=== PATIENT | female | born 2000 | race Caucasian/White ===

== ENCOUNTER 2023-10-16 18:45 | Emergency (ER) | payer OTHER, SELFPAY ==
--- NOTE | ~2023-10-16 | XR_ITS ---
EXAMINATION: XR HAND/WRIST, LEFT CLINICAL INFORMATION: Blunt injury. COMPARISON: None TECHNIQUE: PA, lateral, and oblique views of the left hand and wrist. FINDINGS: There is a nondisplaced distal radial fracture without angulation. There is a nondisplaced fracture of ulnar styloid process as well. Mild dorsal wrist soft tissue swelling is seen. The carpal bones, metacarpals and partially visualized phalanges are unremarkable. XR/XR hand wrist LT IMPRESSION: Nondisplaced distal radial and ulnar styloid process fractures. Moderate dorsal wrist soft tissue swelling.
[2023-10-16 19:19] VITALS: BP 124/87; PULSE 114; O2SAT 97
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
[2023-10-16] MEDS: Ibuprofen 600 MG TABLET PO (19:23)
[2023-10-16 19:59] VITALS: BP 120/77; PULSE 115; RESP 20; TEMP 37.2; O2SAT 95; BMI 22.3
[2023-10-16 22:29] VITALS: BP 120/77; PULSE 115; RESP 20; TEMP 37.2; O2SAT 95
== END 2023-10-16 22:29 | disposition home or self-care (01) ==
PROVIDERS: Emergency Provider Internal Medicine
DX: S52.515A Nondisplaced fracture of left radial styloid process, initial encounter for closed fracture (principal); S52.615A Nondisplaced fracture of left ulna styloid process, initial encounter for closed fracture; Y04.8XXA Assault by other bodily force, initial encounter; Y93.9 Activity, unspecified; Y92.9 Unspecified place or not applicable; Y99.9 Unspecified external cause status
CPT/HCPCS: 29125; 73110; 73130; 99283

== ENCOUNTER 2023-10-23 08:12 | Outpatient (REF) | payer OTHER, SELFPAY ==
--- NOTE | ~2023-10-23 | XR_ITS ---
EXAMINATION: XR WRIST, LEFT CLINICAL INFORMATION: Left wrist pain. COMPARISON: Left hand and wrist radiographs dated 10/16/2023. TECHNIQUE: PA, oblique, lateral, and scaphoid views of the left wrist. FINDINGS: Minimally displaced ulnar styloid fracture in unchanged anatomic alignment with the fracture gap measuring up to 0.1 cm. Additional, minimally displaced fracture through the ulnar aspect of the distal radial metaphysis in unchanged anatomic alignment. No definite extension of the radial fracture to the articular surface. Normal carpal alignment. No joint space narrowing and marginal osteophytes. No osseous erosion. No abnormal soft tissue calcification. XR/XR wrist LT w scaphoid IMPRESSION: Distal radius and ulnar fractures in unchanged anatomic alignment. No definite extension to the radial articular surface. Electronically signed by: Tom Quach MD 10/27/2023 09:10 AM EDT
== END 2023-10-23 08:13 | disposition home or self-care (01) ==
LOC: HO.XRAY 08:12
DX: S52.502A Unspecified fracture of the lower end of left radius, initial encounter for closed fracture (principal); S52.612A Displaced fracture of left ulna styloid process, initial encounter for closed fracture
CPT/HCPCS: 73110; 99202

== ENCOUNTER 2023-10-31 08:17 | Outpatient (REF) | payer OTHER, SELFPAY | END 2023-10-31 08:18 | disposition home or self-care (01) | LOC: HO.HOSX 08:17 | DX: Z13.89 Encounter for screening for other disorder (principal) ==

== ENCOUNTER 2023-11-16 11:05 | Outpatient (AMB) | payer OTHER, SELFPAY ==
--- NOTE | 2023-11-16 11:07 | MHC.OFFVIS ---
Intake Visit Reasons: OV- left radial fx Intake Note: Anabel is a 23 year old right hand dominant female who presents to the office today for a follow up visit of her left radial fx, s/p fall DOI: 10/16/2023. Pt states she doesn't have as much pain as before. She states she will get moments where she has pain. Allergies No Known Allergies Allergy (Verified 11/16/23 11:07) HPI HPI OV- left radial fx: Details: Patient is a 23-year-old female who presents for repeat evaluation of left distal radius fracture, date of injury 10/16/23. Today, the patient reports that she is feeling much better, and then she only experiences minimal twinges of pain occasionally. Patient denies any numbness or tingling in the left hand. No other acute complaints or concerns at this time. Review of Systems Const All systems reviewed & are unremarkable except as noted in HPI and below Physical Exam Extrem Other: Patient is alert, oriented, and in no acute distress. Neuro: Sensation is normal the tips of all other digits of the left hand at this time. Vascular: Cap refill brisk Pain: Patient reports very mild dull ?sensation? but no pain to palpation of the left radial styloid No tenderness to palpation of the ulnar styloid No tenderness to palpation of the anatomical snuffbox or the scaphoid tubercle No tenderness to palpation of the radial head ROM: Patient is able to make a closed fist and extend all digits of the left hand fully Skin: No lacerations or abrasions. General: No noted edema, erythema, evidence of infection Psych: Appears grossly normal Affect normal Attitude cooperative Results Reviewed Results Reviewed: X-rays obtained in the office today and independently reviewed by me, Sukhdeep Toscano PA-C, demonstrate nondisplaced fracture of the left distal radius with evidence of interval bony healing, and displaced fracture of the distal ulnar styloid. Assessment & Plan Assessment & Plan (1) Displaced fracture of left ulna styloid process, initial encounter for closed fracture: Code(s): S52.612A - Displaced fracture of left ulna styloid process, initial encounter for closed fracture Category: Medical (2) Nondisplaced fracture of distal end of left radius: Code(s): S52.502A - Unspecified fracture of the lower end of left radius, initial encounter for closed fracture Category: Medical Plan 1. Left distal radius fracture, non displaced Date of injury 10/16/2023 Patient appears to be recovering well from her injury Patient is educated about the typical recovery course At this time, the patient was removed from a cast and is placed in a Velcro wrist splint to be worn with daytime activities for 4 weeks Patient is educated that she does not have to wear this splint while at rest, while bathing, or while sleeping Patient is educated that she should work on gentle range of motion about the left wrist while at rest and out of the splint Patient is amenable to this plan Patient will follow-up in 4 weeks with repeat x-rays, sooner with any acute concerns Orders: Orders XR wrist LT w scaphoid Today M25.532 - Pain in left wrist Coding Level of Care Code Global (26049) Diagnoses Displaced fracture of left ulna styloid process, initial encounter for closed fracture S52.612A Nondisplaced fracture of distal end of left radius S52.502A
== END 2023-11-16 12:21 | disposition home or self-care (01) ==
DX: S52.612A Displaced fracture of left ulna styloid process, initial encounter for closed fracture (principal); S52.502A Unspecified fracture of the lower end of left radius, initial encounter for closed fracture
CPT/HCPCS: 99024

== ENCOUNTER 2023-11-16 11:14 | Outpatient (REF) | payer OTHER, SELFPAY ==
--- NOTE | ~2023-11-16 | XR_ITS ---
EXAMINATION: XR WRIST, LEFT CLINICAL INFORMATION: M25.532 - Pain in left wrist ; follow-up fracture COMPARISON: 10/23/2023. 10/16/2023. TECHNIQUE: PA, lateral, oblique, and scaphoid views of the left wrist. FINDINGS: Healing mildly comminuted nondisplaced and nonangulated distal radial fracture, with sclerosis and blunting of the fracture margins. No definite extension to the articular surface. Similarly, ulnar styloid fracture demonstrates some early evidence of subtle healing. Overall there is anatomical alignment preserved. Carpal bones remain anatomically aligned and intact. No widening of the scapholunate interval. Soft tissues currently appear normal. XR/XR wrist LT w scaphoid IMPRESSION: 1. No acute bony abnormalities. 2. Continued healing distal radial comminuted fracture, and continued healing of ulnar styloid fracture. Anatomical alignment is maintained. Electronically signed by: Poli Klein MD 01/27/2024 07:23 PM [facility]
== END 2023-11-16 11:15 | disposition home or self-care (01) ==
LOC: HO.HOSX 11:14
DX: M25.532 Pain in left wrist (principal); S52.612A Displaced fracture of left ulna styloid process, initial encounter for closed fracture; S52.502A Unspecified fracture of the lower end of left radius, initial encounter for closed fracture
CPT/HCPCS: 73110; 99212

== ENCOUNTER → 2023-11-16 11:16 | Outpatient (BNV) | payer OTHER, SELFPAY | PROVIDERS: Visit Provider Radiology Diagnostic Radiology | DX: S52.502D Unspecified fracture of the lower end of left radius, subsequent encounter for closed fracture with routine healing (principal) | CPT/HCPCS: 73110 ==

== ENCOUNTER 2023-12-15 09:24 | Outpatient (REF) | payer OTHER, SELFPAY ==
--- NOTE | ~2023-12-15 | XR_ITS ---
EXAMINATION: XR WRIST, LEFT CLINICAL INFORMATION: M25.532 - Pain in left wrist COMPARISON: 11/16/2023, 10/23/2023, 10/16/2023. TECHNIQUE: PA, lateral, oblique, and scaphoid views of the left wrist. FINDINGS: Continued interval healing mildly comminuted nondisplaced and nonangulated distal radial fracture, with sclerosis and blunting of the fracture margins. No definite extension to the articular surface. Similarly, ulnar styloid fracture demonstrates some further evidence of healing with bridging callus. Overall there is anatomical alignment preserved. Carpal bones remain anatomically aligned and intact. No widening of the scapholunate interval. Soft tissues currently appear normal. XR/XR wrist LT w scaphoid IMPRESSION: 1. No acute bony abnormalities. 2. Continued healing distal radial comminuted fracture, and continued healing of ulnar styloid fracture. Anatomical alignment is maintained. Electronically signed by: Poli Klein MD 01/27/2024 07:25 PM [facility]
== END 2023-12-15 09:25 | disposition home or self-care (01) ==
LOC: HO.HOSX 09:24
DX: M25.532 Pain in left wrist (principal); S52.612A Displaced fracture of left ulna styloid process, initial encounter for closed fracture; S52.502A Unspecified fracture of the lower end of left radius, initial encounter for closed fracture
CPT/HCPCS: 25600; 73110; 99212

== ENCOUNTER 2023-12-15 11:28 | Outpatient (AMB) | payer OTHER, SELFPAY ==
[2023-12-15 11:35] VITALS: BMI 22.3
--- NOTE | 2023-12-15 11:35 | MHC.OFFVIS ---
Vital Signs 12/15/23 11:35 Height 5 ft 4 in Weight 130 lb BMI 22.3 Intake Visit Reasons: OV- Left radial fx follow up, DOI 10/16/23 Intake Note: Anabel is a 23 year old right hand dominant female who presents to the office today for a follow up visit of her left radial fx, s/p fall DOI: 10/16/2023. Velcro wrist splint to be worn with daytime activities for 4 weeks & work on gentle ROM. Patient states that she wears the brace everyday for support, she has minimal pain. Allergies No Known Allergies Allergy (Verified 12/15/23 11:39) HPI HPI OV- Left radial fx follow up, DOI 10/16/23: Details: Patient is a 23-year-old female who presents for 4 week follow-up of the left distal radius fracture, date of injury 09/1923. Today, the patient reports that she is feeling much better, and is experiencing no pain at baseline. Patient reports that she has been wearing the Velcro wrist splint with all daytime activities, but has been working on range of motion while at rest. Patient denies any numbness or tingling in the left hand. No other acute complaints or concerns at this time. Review of Systems Const All systems reviewed & are unremarkable except as noted in HPI and below Physical Exam Vital Signs: BMI result Body Mass Index 22.3 Extrem Other: Patient is alert, oriented, and in no acute distress. Neuro: Sensation is normal the tips of all other digits of the left hand at this time. Vascular: Cap refill brisk Pain: No tenderness to palpation of the left radial styloid No tenderness to palpation of the ulnar styloid No tenderness to palpation of the anatomical snuffbox or the scaphoid tubercle No tenderness to palpation of the radial head ROM: Patient is able to make a closed fist and extend all digits of the left hand fully Range of motion of the left wrist full and intact Skin: No lacerations or abrasions. General: No noted edema, erythema, evidence of infection Psych: Appears grossly normal Affect normal Attitude cooperative Results Reviewed Results Reviewed: X-rays obtained in the office today and independently reviewed by me, Sukhdeep Toscano PA-C, demonstrate very well approximated fracture of the left distal radius with evidence of interval bony healing. There is also a minimally displaced fracture of the left ulnar styloid with improved alignment from last visit and interval bony healing. Assessment & Plan Assessment & Plan (1) Displaced fracture of left ulna styloid process, initial encounter for closed fracture: Code(s): S52.612A - Displaced fracture of left ulna styloid process, initial encounter for closed fracture Category: Medical (2) Nondisplaced fracture of distal end of left radius: Code(s): S52.502A - Unspecified fracture of the lower end of left radius, initial encounter for closed fracture Category: Medical Plan 1. Left distal radius fracture, nondisplaced 2. Left ulnar styloid fracture, minimally displaced Date of injury 09/1923 Patient is recovering well from her injury Patient is educated about the typical recovery course At this time, patient is informed that she will only require the Velcro wrist splint in high-energy or high-risk situations for the next 2-3 weeks to allow for improved healing of the fracture and to prevent any re-injury Patient is also informed that she can move her weight limit up to approximately 5 lb in the left hand and wrist, and in 2-3 weeks can proceed to normal activity as tolerated Patient understands this and is amenable to this plan Patient will follow-up as needed with any acute concerns Orders: Orders XR wrist LT w scaphoid Today M25.532 - Pain in left wrist Coding Level of Care Code Global (62956) Diagnoses Displaced fracture of left ulna styloid process, initial encounter for closed fracture S52.612A Nondisplaced fracture of distal end of left radius S52.502A
== END 2023-12-15 11:52 | disposition home or self-care (01) ==
DX: S52.612A Displaced fracture of left ulna styloid process, initial encounter for closed fracture (principal); S52.502A Unspecified fracture of the lower end of left radius, initial encounter for closed fracture
CPT/HCPCS: 25600; 99024

== ENCOUNTER → 2023-12-15 11:30 | Outpatient (BNV) | payer OTHER, SELFPAY | PROVIDERS: Visit Provider Radiology Diagnostic Radiology | DX: S52.502D Unspecified fracture of the lower end of left radius, subsequent encounter for closed fracture with routine healing (principal); S52.615D Nondisplaced fracture of left ulna styloid process, subsequent encounter for closed fracture with routine healing | CPT/HCPCS: 73110 ==

== ENCOUNTER 2024-08-31 10:58 | Emergency (ER) | payer OTHER, SELFPAY ==
--- NOTE | ~2024-08-31 | US_ITS ---
CLINICAL HISTORY: vomiting, HCG 44,000, ABD PAIN US OB 1ST TRIMESTER TRANSABDOMINAL Comparison: None provided Findings: Single intrauterine . CRL: 11.5 mm. EGA: 7 weeks, 3 days. YAZMIN: April 16, 2025. Previously established gestational age: N/A. Normal yolk sac . Cardiac activity: 139 bpm. No subchorionic bleed. Right ovary 3.3 x 1.9 x 1.7 cm. No dominant cyst. Left ovary 2.8 x 1.9 x 2.1 cm. No dominant cysts. No free fluid. IMPRESSION: Single intrauterine estimated 7 weeks, 3 days gestational age by today's ultrasound criteria. This document has been electronically signed by: Bisi Carranza DO on 08/31/2024 13:45:11
--- NOTE | 2024-08-31 10:58 | ED.GENADULT ---
HPI - General Adult General Chief complaint: Nausea/Vomiting/Diarrhea Stated complaint: N/V, LT SIDE ABD PAIN,LEG CRAMPS,ETOH T-1 PER EMS Source: patient, EMS, RN notes reviewed and old records reviewed Mode of arrival: EMS Limitations: no limitations History of Present Illness ED Provider: Parag HPI narrative: Patient is a 24-year-old female with no reported past medical history presenting to the emergency department with complaint of nausea and vomiting since this morning after drinking alcohol yesterday. States she did have 2 episodes of loose stool prior to coming to the emergency department. She was given IV fluids and Zofran by EMS which she states significantly improved her symptoms and is requesting something to drink. Denies abdominal pain. Does report irregular menstrual periods, reports last normal period was 06/30-07/10. On OCP, unsure of name. complaint: nausea and vomiting Onset (ago): hour(s) Related Data Previous Rx's ?Medication ?Instructions ?Recorded cephalexin 500 mg capsule 500 mg PO QID #28 caps 08/31/24 ondansetron 4 mg disintegrating 4 mg PO Q8H PRN nausea and 08/31/24 tablet vomiting #10 tabs vits no.126-ferrous fum 1 tab PO DAILY #90 tabs 08/31/24 28 mg iron-folic acid 800 mcg tablet (Classic ) Allergies Allergy/AdvReac Type Severity Reaction Status Date / Time No Known Allergies Allergy Verified 08/31/24 11:11 Review of Systems Review of Systems: As per HPI Yes all other systems are reviewed and are negative Constitutional: Constitutional: Reports as per HPI [facility] Social History Social History Alcohol intake: current Alcohol intake frequency: holidays/special occasions only Alcohol type: hard liquor Smoked in Last 30 Days: Yes Use of substances other than those prescribed or required for medical reasons: Yes Substance Use Type: Marijuana Advance Directives: No Advance Directives Information Provided: No Physical Exam ED Vital Signs: Vital Signs - 24 hr 08/31/24 11:07 08/31/24 11:14 Temperature 98.7 F 98.7 F Pulse Rate 73 62 Respiratory Rate 16 18 Blood Pressure 109/63 109/63 Pulse Oximetry 98 100 Oxygen Delivery Method Room Air Room Air BMI result Body Mass Index 21.0 Vital signs have been reviewed and appear to be correct. Blood pressure normal. Heart rate normal. Respiratory rate normal. Temperature normal. Oxygen saturation normal. Const General: cooperative, healthy appearing and no acute distress Orientation/consciousness: oriented to person, oriented to place, oriented to time and patient oriented x3 Limitations: no limitations HENMT Head: Yes normocephalic and Yes atraumatic Ears: external ears normal General nose exam: Normal external nose present Face and sinus: Yes face symmetric Mouth: oropharynx normal and moist mucous membranes Throat: Yes uvula midline Eyes Pupils: Equal, round and reactive pupils present Neck Neck: Yes normal visual inspection and Yes supple Resp Effort & Inspection: normal respiratory effort and able to speak in complete sentences Auscultation: clear to auscultation bilaterally Cardio Rate: regular rate Rhythm: regular rhythm Heart sounds: S1 normal heart sound present and S2 normal heart sound present GI Palpation (GI): Soft to palpation and nontender Auscultation: normoactive bowel sounds General: Yes no CVA tenderness Back/Spine/Pelvis Back: no CVA tenderness Skin General skin exam: elasticity normal and turgor normal Neuro General: oriented to person, oriented to place, oriented to time, patient oriented x3, moves all extremities, no focal motor deficits and CN's II-XI intact bilaterally Cranial nerves: Yes Equal, round and reactive pupils present Cognition (Neuro): normal cognition Extrem General: Yes full ROM, Yes no pedal edema and Yes no calf tenderness Psych Mental Status: mental status grossly normal Affect: normal affect Thought process: Normal thought process present Medications Administered Discontinued Medications Generic Name Dose Route Start Last Admin Trade Name Freq PRN Reason Stop Dose Admin Cephalexin HCl 500 mg 08/31/24 12:56 08/31/24 13:00 Cephalexin 500 Mg Capsule PO 08/31/24 12:57 500 mg ONCE ONE Administration Sodium Chloride 1,000 mls @ 999 mls/hr 08/31/24 11:15 08/31/24 12:51 Ns IV 08/31/24 12:15 Infused .Q1H1M PREETHI Infusion Magnesium Sulfate 2 gm in 50 mls @ 25 mls/hr 08/31/24 12:18 08/31/24 14:14 Magnesium Sulfate/H2o IV 08/31/24 14:17 Infused ONCE ONE Infusion Ondansetron HCl 4 mg 08/31/24 11:01 08/31/24 12:51 Ondansetron Hcl 4 Mg/2 Ml Vial IVPUSH 08/31/24 11:02 Not Given ONCE ONE Medical Decision Making Medical Decision Making [facility] Narrative: Patient is a 24-year-old female with no reported past medical history presenting to the emergency department with complaint of nausea and vomiting since this morning after drinking alcohol yesterday. On exam patient is awake, A+Ox3, VS WNL, afebrile, normal neurological exam without focal deficits, physical exam findings as above. Given reported symptoms and physical exam findings, initial differential includes but is not limited to gastritis, gastroenteritis, electrolyte abnormality, dehydration, possible . Plan to check labs, PO trial. Labs notable for hypomagnesemia, [place] [address]. Pelvic u/s ordered. She denies any recent vaginal bleeding or other abnormal vaginal discharge. UA notable for 2+ leukocytes, positive nitrites, 4+ bacteria. Will treat with cephalexin. U/S notable for single IUP with estimated gestational age of 7wks, 3 days. My interpretation is in agreement with the radiologist's interpretation. Patient has been able to tolerate both food and fluids in the ED without vomiting. Feel she is stable for discharge, will start on vitamins and provide information for OB follow up. Will send prescription for zofran for nausea. Return precautions discussed. Patient verbalized understanding of and agreement with plan. Differential Diagnosis Differential Diagnoses: The differential diagnosis associated with the presentation includes As per [facility] Admission/Observation Consideration of admission/observation: Escalation of care including admission/observation considered Patient would have been admitted to the hospital had their work up had any findings where hospital admission was appropriate and their clinical presentation warranted hospital admission. Lab Data [facility] Lab Attestation statement: I reviewed the patient's lab results. as per [facility] 08/31/24 11:25 08/31/24 11:25 Labs: Lab Results 08/31/24 08/31/24 Range/Units 11:25 12:07 WBC 12.1 H (4.8-10.8) X10*3/uL RBC 3.73 L (4.20-5.50) X10*6/uL Hgb 11.8 L (12.0-16.0) g/dl Hct 33.2 L (37.0-47.0) % MCV 89.0 (80.0-98.0) fL MCH 31.6 (27.0-33.0) pg MCHC 35.5 H (31.0-35.0) g/dl RDW 12.9 (11.0-16.0) % Plt Count 376 (160-400) X10*3/uL MPV 9.5 (9.4-12.3) fL Immature Gran % (Auto) 0.2 (0.0-0.4) % Neut % (Auto) 90.4 H (45-73) % Lymph % (Auto) 6.5 L (20-40) % [place] % (Auto) 2.7 (2-11) % Eos % (Auto) 0.0 (0-4) % Baso % (Auto) 0.2 (0-2) % Lymph # (Auto) 0.8 L (1.2-4.9) X10*3/uL [place] # (Auto) 0.3 (0.1-1.2) X10*3/uL Eos # (Auto) 0.0 (0.0-0.4) X10*3/uL Baso # (Auto) 0.0 (0.0-0.2) X10*3/uL Abs Immat Gran (auto) 0.03 (0.00-0.03) X10*3/uL Absolute Neuts (auto) 10.9 H (2.0-8.3) x10*3/uL Absolute Nucleated RBC 0.000 (0.0-0.012) X10*3/uL Nucleated RBC % (auto) 0.0 (0.0-0.2) /100WBC Smear Tech's Comments VERIFIED Sodium 139 (135-145) mmol/L Potassium 3.8 (3.3-5.1) mmol/L Chloride 107 (96-108) mmol/L Carbon Dioxide 20 L (22-29) mmol/L Anion Gap 16 (12-20) BUN 10 (9-16) mg/dL Creatinine 0.51 (0.5-1.4) mg/dL Estim Creat Clear Calc 141.9 Estimated GFR > 60 Random Glucose 106 (60-115) mg/dL Calcium 8.5 (8.4-10.2) mg/dL Magnesium 1.4 L* (1.6-2.6) mg/dL Total Bilirubin 0.6 (0.0-1.0) mg/dL AST 74 H (5-31) U/L ALT 80 H (0-31) U/L Alkaline Phosphatase 62 (39-117) U/L Total Protein 6.8 (6.5-8.0) g/dL Albumin 4.4 (3.5-5.0) g/dL Lipase 9 (8-78) U/L Beta HCG, Quant 26143 mIU/mL Urine Color Yellow Urine Appearance Cloudy Urine pH 8.0 (5.0-9.0) Ur Specific Bowie 1.025 (1.005-1.025) Urine Protein 100 (2+) H (Neg-Trace) mg/dL Urine Glucose (UA) Negative (Negative) mg/dL Urine Ketones 80 (Negative) mg/dL Urine Blood Negative (Negative) Urine Nitrite Positive H (Negative) Ur Leukocyte Esterase Moderate (2+) H (Negative) Urine RBC 0-2 (0-2) /HPF Urine WBC 21-50 H (0-5) /HPF Ur Squamous Epith Cells 6-10 (0-2) /HPF Urine Bacteria 4+ (None Seen) Hyaline Casts 0-2 (0-2) /LPF Ethyl Alcohol < 10 mg/dL Independent Interpretation I performed an independent interpretation of an: Ultrasound Interpretation: U/S notable for single IUP Radiology Impression Discussion of test interpretation with radiology: I have reviewed the radiologist's reading. Radiologist Impression: IMPRESSION: Single intrauterine estimated 7 weeks, 3 days gestational age by today's ultrasound criteria. External Record Review External record reviewed: Inpatient record, Office record and Outpatient record Prescription Management I considered prescription management with: Antibiotic and Other Discharge Plan Discharge Clinical Impression: First trimester , UTI (urinary tract infection) during , Hypomagnesemia Patient Disposition: Home, Self-Care Instructions: Urinary Tract Infection in (ED), at 7 to 10 Weeks (ED) Additional Instructions: You were evaluated in the emergency department today for nausea and vomiting. Your labs showed positive and your ultrasound showed a single intrauterine with an estimated gestational age of 7 weeks and 3 days. IT IS IMPORTANT THAT YOU FOLLOW UP WITH AN RN ENDOCRINOLOGY SOON POSSIBLE. You are being started on vitamins, take these as prescribed. Your urine showed evidence of infection and you are being treated with antibiotics. Complete the full course of antibiotics as prescribed even if your symptoms improve. Be sure to drink adequate fluids. You are being prescribed ondansetron which you can take every 8 hours as needed for nausea. Return to the emergency department if you develop abdominal pain, vaginal bleeding or other abnormal vaginal discharge, fever, or any other new or concerning symptoms. [facility] [address] [place] [address] [phone] [facility] [address] [phone] [facility] [address] [phone] [facility] [place] [phone] [facility] [phone] Prescriptions: New cephalexin 500 mg capsule 500 mg PO QID Qty: 28 0RF ondansetron 4 mg tablet,disintegrating 4 mg PO Q8H PRN (Reason: nausea and vomiting) Qty: 10 0RF Classic 28 mg iron- 800 mcg tablet 1 tab PO DAILY Qty: 90 0RF Print Language: Venezuelan
[2024-08-31 11:04] VITALS: BP 133/70; PULSE 71; O2SAT 98
[2024-08-31 11:07] VITALS: BP 109/63; PULSE 73; RESP 16; TEMP 37.1; O2SAT 98; BMI 21.0
[2024-08-31 11:14] VITALS: BP 109/63; PULSE 62; RESP 18; TEMP 37.1; O2SAT 100
--- NOTE | 2024-08-31 11:36 | PC.NURSE ---
Pt denies c/o nausea at this time, tx'd enroute w/ zofran, requesting ice and g'isacc. SALES ENABLEMENT MANAGER at bedside for assessment, agree to po trial in progress.
[2024-08-31 11:38] LABS: Hematocrit 33.2 % (37.0-47.0); Hemoglobin 11.8 g/dl (12.0-16.0); Imm Gran Abs Auto 0.03 X10*3/uL (0.00-0.03); Imm Gran Pct Auto 0.2 % (0.0-0.4); Lymphocytes Absolute Auto 0.8 X10*3/uL (1.2-4.9); MANUAL DIFF FLAG SCAN; Mean Corpuscular HGB Conc 35.5 g/dl (31.0-35.0); Mean Corpuscular Hemoglobin 31.6 pg (27.0-33.0); Mean Corpuscular Volume 89.0 fL (80.0-98.0); NRBC Abs Auto 0.000 X10*3/uL (0.0-0.012); NRBC Pct Auto 0.0 /100WBC (0.0-0.2); Platelet Count 376 X10*3/uL (160-400); Red Blood Count 3.73 X10*6/uL (4.20-5.50); SCAN SMEAR FLAG 1; White Blood Count 12.1 X10*3/uL (4.8-10.8)
[2024-08-31 12:15] LABS: Appearance Urine Cloudy; Glucose Urine UA Negative (Negative); PH 8.0 (5.0-9.0); Specific Gravity - Urine 1.025 (1.005-1.025); UMIC TRIGGER UACC YES
[2024-08-31 12:18] LABS: Alanine Aminotransferase 80 U/L (0-31); Albumin Level 4.4 g/dL (3.5-5.0); Alkaline Phosphatase 62 U/L (39-117); Anion Gap 16 (12-20); Aspartate Amino Transferase 74 U/L (5-31); Blood Urea Nitrogen 10 mg/dL (9-16); Calcium 8.5 mg/dL (8.4-10.2); Carbon Dioxide 20 mmol/L (22-29); Chloride 107 mmol/L (96-108); Creatinine Clr Calc Pharmacy 141.9; Estimated Glomerular Filt Rate > 60; Lipase 9 U/L (8-78); Magnesium 1.4 mg/dL (1.6-2.6); Potassium 3.8 mmol/L (3.3-5.1); Sodium 139 mmol/L (135-145); Total Protein 6.8 g/dL (6.5-8.0)
[2024-08-31 12:20] LABS: UACC Culture Trigger YES
[2024-08-31] MEDS: Magnesium Sulfate/H2O 2 GM/50 ML PIGGYBACK IV (12:46)
[2024-08-31 14:40] VITALS: BP 102/51; PULSE 71; RESP 19; TEMP 36.9; O2SAT 100
[2024-08-31 14:59] VITALS: BP 102/51; PULSE 71; RESP 19; TEMP 36.9; O2SAT 100
== END 2024-08-31 14:59 | disposition home or self-care (01) ==
PROVIDERS: Registered Nurse Emergency; Emergency Provider Emergency Medicine
DX: O23.41 Unspecified infection of urinary tract in pregnancy, first trimester (principal); E83.42 Hypomagnesemia; Z3A.01 Less than 8 weeks gestation of pregnancy; R11.2 Nausea with vomiting, unspecified; N39.0 Urinary tract infection, site not specified; Z37.9 Outcome of delivery, unspecified
CPT/HCPCS: 36415; 76801; 80053; 80307; 81001; 83690; 83735; 84702; 85025; 87086; 87088; 87186; 96361; 96365; 96366; 99284; J3475

== ENCOUNTER → 2024-08-31 12:28 | Outpatient (BNV) | payer OTHER, SELFPAY | PROVIDERS: Emergency Provider Emergency Medicine; Visit Provider Radiology Diagnostic Radiology | DX: O26.891 Other specified pregnancy related conditions, first trimester (principal); R11.2 Nausea with vomiting, unspecified; Z3A.01 Less than 8 weeks gestation of pregnancy | CPT/HCPCS: 76801 ==